=== PATIENT | male | born 1960 | race Caucasian/White ===

== ENCOUNTER 2016-12-18 07:47 | Day surgery (SDC) | payer OTHER ==
--- NOTE | 2016-12-05 14:18 | HP ---
ADMISSION HISTORY AND PHYSICAL: DATE OF ADMISSION/SURGERY: 12/18/16 ATTENDING PROVIDER: Wade Ayon MD (DICTATED BY SHANE PHILLIPS) CHIEF COMPLAINT: Bilateral inguinal hernia. HISTORY OF PRESENT ILLNESS: Mr. Vieyra is a pleasant 56-year-old gentleman who was initially seen in our office back in September of 2016 for evaluation of bilateral inguinal hernia. Patient was noted to have some bulge in the right groin area that has been going on for the past 9 months or so. He described it as a bothersome bulge that appears on occasion especially with frequent coughing or heavy weight lifting. He will often able to push in the area to reduce it and that will give him some relief. He notes that this bulge is usually aggravated with lifting heavy items. He denies any problems with bowel movements or similar symptoms on the left side. He otherwise is a very healthy 56-year-old gentleman with no significant past medical history except for intermittent PVCs for which he has been followed by his milk pickup truck driver, Dr. Rutherford. Patient was seen in the office today for preoperative evaluation regarding his anticipated elective hernia repair to be performed by Dr. Ayon on 12/18/16. He notes no changes in his symptoms since his last office visit. He still noticed occasional right groin bulge, but denies any changes in the bowel habits or any other associated symptoms. The patient was seen by Dr. Rutherford last week and had an exercise stress test that revealed an intermittent PVCs, but patient remained asymptomatic and it was found to be a low risk to proceed with surgery with no other recommendation for followup needed. The patient notes doing very well overall. PAST MEDICAL HISTORY: Significant for nephrolithiasis, and also history of congenital right inguinal hernia at . PAST SURGICAL HISTORY: Significant for a right inguinal hernia repair at age 3. He also had a vasectomy back in 2007. CURRENT MEDICATIONS: Patient does not take any regular medications at home. ALLERGIES: No known drug allergies. FAMILY HISTORY: Significant for hypertension and coronary artery disease on his father side. SOCIAL HISTORY: Patient is , lives with his family. He has never smoked and consumes alcohol on a weekly basis. He drinks 3 cups of coffee every day. He denies illicit drug use. REVIEW OF SYSTEMS: See HPI, otherwise negative. He denies any headache, dizziness, blurred vision, syncope. He denies any chest pain, shortness of breath, cough, wheezing or recent respiratory infections. He admits to right inguinal bulge, but denies any significant abdominal pain, distention, changes in bowel habits or bleeding per rectum. Patient also notes that he had some loose bowel movements a few weeks ago, but that seemed to be better now since he was held any dairy products assuming that he might have developed some lactase intolerance. He denies any flank pain, dysuria, hematuria or urinary frequency and no testicular pain or penile discharge. PHYSICAL EXAMINATION GENERAL: He is a pleasant, healthy appearing, 56-year-old gentleman in no acute distress or discomfort today in the office. VITAL SIGNS: His vitals today revealed blood pressure of 100/68, pulse of 62, temperature of 97.5, respirations of 16. He weighs 178 pounds on a 6 feet frame with a BMI of 24.3. HEENT: Sclerae anicteric. PERRLA. EOMs intact. Oropharynx is pink and moist with no exudate. NECK: Supple. Trachea midline. No cervical adenopathy, thyromegaly, or JVD. LUNGS: Clear to auscultation bilaterally. HEART: Regular rate and rhythm. Normal S1 and S2 without rubs, murmurs, or gallops. BACK: With normal curvature. No CVA tenderness. ABDOMEN: Soft, nontender, and nondistended. Examination of the right inguinal area revealed moderate sized right inguinal bulge noted in the standing position. This was easily reduced. There were no testicular lesions or masses noted. Left inguinal area was examined as well and a small hernia was noted on the Valsalva maneuver. In the supine position, there was no umbilical hernia appreciated. No organomegaly, rebound tenderness or tympany. EXTREMITIES: Without cyanosis, clubbing, or edema. RECTAL: Deferred at this time. NEUROLOGIC: Grossly intact. IMPRESSION: A 56-year-old gentleman with bilateral inguinal hernia easily reducible with no signs of strangulation or obstruction, with recurrent hernia on the right side. PLAN: I went on and discussed with the patient one more time the findings of his physical exam. He is well informed and scheduled to undergo surgery as outlined. The rationale, indications, risks, and benefits of surgery were discussed with him in great detail today. Risks include, but not limited to infection, bleeding, or injury to adjacent structures. He seems to understood and wishes to proceed with laparoscopic bilateral inguinal hernia repair. He has obtained both medical and cardiology clearance from his primary care physician and milk pickup truck driver in respect. He was found to be a low risk to proceed with surgery and no further testing was recommended. We discussed also the anticipated recovery time and the need to withhold any heavy weight lifting for a period of 2 weeks at least. We will follow him up accordingly after the surgery. SHANE PHILLIPS CC: Wade Rutherford DO; Dr. Soria * [id number]/[facility] #: [id number] [place]
[~2016-12-18 07:47] MED LIST: Famotidine IV* 10 MG/ML 2 ML (20 mg) IV ONE
[2016-12-18] MEDS ORDERED: Famotidine IV* 10 MG/ML 2 ML (20 mg) ONE (08:04)
[2016-12-18] MEDS ORDERED: ceFAZolin 2 GM PREMIX(*) 2 GM/50 ML BAG IVPB ONE (08:04)
[2016-12-18] MEDS ORDERED: Midazolam* 1 MG/ML 5 ML VIAL (5 MG) ONE (09:07)
[2016-12-18] MEDS ORDERED: fentaNYL* 50 MCG/ML 2 ML VIAL (100 MCG VIAL) ONE ×2 (09:07→10:48)
[2016-12-18] MEDS ORDERED: Bupivacaine 0.25% EPI 200,000* 30 ML SDV ONE (09:47)
--- NOTE | 2016-12-18 10:32 | PN ---
Progress Note - Progress Note Note: Brief Operative Note: Preop and postop Dx: Bilateral Inguinal Hernias Procedure: Laparoscopic repair bilateral inguinal hernias w/ mesh Anesthesia: SAI Surgeon: Gabo Asst: SHANE Acharya EBL: < 50 ml Fluids: 1600 ml RL Drains: none Findings: dictated
[2016-12-18] MEDS ORDERED: Rocuronium* 10 MG/ML VIAL ONE ×2 (10:40→11:30)
[2016-12-18] MEDS ORDERED: Succinylcholine* 20 MG/ML 10 ML VIAL ONE (10:46)
[2016-12-18] MEDS ORDERED: Dexamethasone IV* 4 MG/ML 1 ML (4 MG) ONE (10:46)
[2016-12-18] MEDS ORDERED: Ondansetron INJ* 2 MG/ML VIAL ONE (10:46)
[2016-12-18] MEDS ORDERED: Ketorolac INJ* 30 MG/ML 1 ML VIAL ONE (10:46)
[2016-12-18] MEDS ORDERED: Lidocaine 2% PF * 5 ML VIAL ONE (10:46)
[2016-12-18] MEDS ORDERED: Propofol* 10 MG/ML 20 ML BTL IV PUSH ONE (10:46)
[2016-12-18] MEDS ORDERED: HYDROmorphone* 1 MG/ML 1 ML SYR IV PRN (11:05)
[2016-12-18] MEDS ORDERED: DiMENhydriNATE IV* 50 MG/ML VIAL IV PUSH PRN (11:05)
[2016-12-18] MEDS ORDERED: oxyCODONE/Acetamin 5/325 MG* TAB PO PRN (11:05)
[2016-12-18] MEDS ORDERED: HYDROmorphone* 1 MG/ML 1 ML SYR ONE (11:18)
[2016-12-18] MEDS ORDERED: oxyCODONE/Acetamin 5/325 MG* TAB ONE (12:45)
[2016-12-18 14:04] VITALS: BP 106/75
--- NOTE | 2016-12-25 01:21 | OP ---
CC: Brina Soria DO; Wade Rutherford DO; [facility] OPERATIVE REPORT: DATE OF OPERATION: 12/18/16 DATE OF : 64 SURGEON: Wade Ayon MD FRONT MAN: SHANE Peter ANESTHESIA: General anesthesia. PRE-OP DIAGNOSIS: Bilateral inguinal hernia. POST-OP DIAGNOSIS: Bilateral inguinal hernia. OPERATIVE PROCEDURE: Laparoscopic bilateral inguinal hernia repair with mesh. ESTIMATED BLOOD LOSS: Minimal. FLUIDS: Minimal crystalloid fluid given. SPECIMEN: None. DRAINS: None. COUNTS: Lap pad count and instrument count correct at the end of the procedure. DESCRIPTION OF PROCEDURE: The patient was identified in the preoperative area. He was marked, case discussed with him, and consent signed. He was brought back to the operating room, placed on the o perating room in a supine position. Preoperative antibiotics were given. Sequential devices were pl aced on bilateral lower extremities. General anesthesia was induced. A Oliver catheter was inserted and the patient's abdomen was clipped of hair and prepped and draped in a standard surgical fashion . A time-out was performed. An infraumbilical incision was made. This was deepened down to the anterior fascia on the left, whi ch was incised and the rectus pillar on the left was retracted laterally. This allowed us entry int o the preperitoneal plane. Blunt dissection was then carried out and a 12-mm trocar was inserted in to this space and allowed to insufflate to a pressure of 12 mmHg. The patient tolerated the insuffl ation well. Laparoscope was inserted and blunt dissection was then carried out with the camera to fr ee up loose areolar tissue to allow for 2 additional 5-mm trocars to be inserted in the lower midlin e. Attention was then towards the right side. The pubic symphysis and the Ehsan's ligament on the rig ht were cleared off. A direct hernia was reduced gently. Attention was then turned to the epigastri c vessels, these were maintained superiorly, and the space of [place] was cleared off to allow positi oning for the mesh at the lateral aspect of the right groin. Next, the spermatic structures were isolated. They were skeletonized and no indirect hernia sac was identified. Attention was then towards the left. Left Ehsan's ligament was cleared off. Epigastric vessels wer e identified and noted to be aligned posteriorly. This forced us to perform dissection just deep to these and reflect them anteriorly. This allowed us to open up into a [place] space; however, we did put an opening in the peritoneum laterally. This was reapproximated with a 5 mm clip sound system installer, but p neumoperitoneum remained. We then examined the spermatic structures. An indirect hernia sac was identified heading along the cord structures. This was bluntly reduced and a large rent in the peritoneum was made. We ultimate ly did reduce this completely posteriorly. It was closed. This rent was reapproximated with a 5 mm clip sound system installer as well as a 2- 0 Polysorb Endoloop. We then placed the meshes over the myopectineal orifices bilaterally using a Bard 3D mesh medium siz e, first 2 places on the right side, tacked it to Ehsan's ligament and also along the rectus muscle and also laterally taking care not to place it in the [place] of [place]. We applied the left-sided mesh in a similar fashion. Then, we allowed the preperitoneal space to collapse. Trocars were removed under direct vision and attention was turned towards the posterior fascia at the umbilical port site. This was incised. Gu sh of air from peritoneum was encountered and the trocar was inserted through this. Laparoscope was inserted to this port and the patient was placed in a Trendelenburg fashion. Review of the periton eum showed that we did not completely close the rent and the lower midline incisions were then utili zed to place 5-mm ports into the abdomen. With this better access, we could close the peritoneum ov erlying the mesh such that no mesh was exposed. The mesh did not show any wrinkling. The abdomen was allowed to collapse. Trocars were removed under direct vision. Posterior fascia was closed with 2-0 Polysorb suture in an anterior fashion with 0 Polysorb suture in a [id number] fashion. Wound was irrigated and all 3 skin incisions were reapproximated with 4-0 Monocryl subcuti cular sutures followed by Steri-Strips and sterile dressing. The patient tolerated the procedure we ll and was transferred to PACU in stable condition. [id number]/[facility] #: [id number]
== END 2016-12-18 14:04 | disposition home or self-care (01) ==
LOC: OR 07:47
PROVIDERS: ATTEND Surgery
DX: K40.20 Bilateral inguinal hernia, without obstruction or gangrene, not specified as recurrent (principal); I49.3 Ventricular premature depolarization
CPT/HCPCS: A9270-GY; C1776; C1781; J0330; J0690; J1100; J1170; J1885; J2250; J2405; J2704; J3010

== ENCOUNTER 2016-12-30 13:29 | Observation (INO) | payer OTHER ==
[2016-12-30 17:24] LABS: Hematocrit 45 % (42-52); Mean Corpuscular HGB Conc 33 g/dl (31-36); Mean Corpuscular Hemoglobin 31 pg (27-31); Mean Corpuscular Volume 92 fL (80-94); Mean Platelet Volume 9 um3 (7.4-10.4); Red Blood Count 4.93 10^6/ul (4.0-5.4); Red Cell Distribution Width 13 % (10.5-15); White Blood Count 9.1 10^3/ul (3.5-10.8)
--- NOTE | 2016-12-30 17:24 | RAD ---
INDICATION: Chest pain with radiation to the back. COMPARISON: There are no prior studies available for comparison. TECHNIQUE: Dual-energy PA and lateral views of the chest were obtained. FINDINGS: The heart is within normal limits in size. Mediastinal and hilar contours appear within normal limits. The lungs are underinflated. There are small infiltrates at both lung bases suggestive of atelectasis although nonspecific. No pleural effusion is seen. IMPRESSION: EXPIRATORY EXAM, SMALL BIBASILAR INFILTRATES.
[2016-12-30 18:04] LABS: Albumin 4.2 g/dL (3.2-5.2); BUN/Creatinine Ratio 15.5 (8-20); Calcium 9.1 mg/dL (8.6-10.3); EGFR African American 122.5 (>60); EGFR Non-African American 95.2 (>60); Globulin 2.7 g/dL (2-4); Total Protein 6.9 g/dL (6.4-8.9)
[2016-12-30 18:06] LABS: Potassium 4.2 mmol/L (3.5-5.0)
[2016-12-30] MEDS ORDERED: Iohexol 350* (CONTRAST) 500 ML MDV IV ONE (18:23)
--- NOTE | 2016-12-30 18:55 | RAD ---
INDICATION: Chest pain and shortness of breath. COMPARISON: Comparison is made with a prior chest x-ray study of the same day. TECHNIQUE: A CT angiogram of the chest was performed with intravenous following intravenous injection of 65 ml of Omnipaque 350 nonionic contrast. Contiguous axial sections were obtained from the lung apices through the lung bases. Images were reconstructed in the coronal and sagittal planes. FINDINGS: There are intraluminal filling defects present in several bilateral lower lobe basilar segmental arteries consistent with multiple bilateral pulmonary emboli. The heart is within normal limits in size. No pericardial effusion is present. The thoracic aorta is normal in caliber and demonstrates homogeneous contrast opacification. No significant enlarged mediastinal or hilar lymph nodes are seen. The lungs are underinflated. There are small bilateral lower lobe infiltrates. No pleural effusion is present. There is a small fluid density lesion in the posterior segment of the right hepatic lobe seen on the images of the upper abdomen measuring 1.4 cm in size most consistent with a cyst. No significant focal osseous abnormality is seen. The results of this exam were called to the referring clinician. IMPRESSION: MULTIPLE BILATERAL PULMONARY EMBOLI.
[2016-12-30] MEDS ORDERED: Rivaroxaban TAB(*) 15 MG PO ONE (19:05)
[2016-12-30] MEDS ORDERED: Ondansetron INJ* 2 MG/ML VIAL IV PRN (20:47)
[2016-12-30] MEDS ORDERED: oxyCODONE/Acetamin 5/325 MG* TAB PO PRN (20:47)
--- NOTE | 2016-12-30 22:23 | RAD ---
INDICATION: Pulmonary embolism. COMPARISON: Correlation is made with a prior CT angiogram of the chest of the same day. TECHNIQUE: Multiple real-time, color flow and Doppler tracings of both lower extremities were obtained. FINDINGS: The common femoral, femoral, profunda femoral and popliteal veins all demonstrate normal compressibility, augmentation with compression and phasic response with respiration. The posterior tibial and peroneal veins demonstrate normal compressibility and augmentation with compression. IMPRESSION: NO EVIDENCE FOR DEEP VENOUS THROMBOSIS.
[2016-12-30] MEDS: Acetaminophen TAB* 325 MG PO PRN (22:28)
--- NOTE | 2016-12-30 23:18 | HP ---
HISTORY AND PHYSICAL: DATE OF ADMISSION: 12/30/16 PRIMARY CARE PHYSICIAN: Tyshawn Soria DO ATTENDING PHYSICIAN WHILE IN THE HOSPITAL: Randy Kaiser MD * (report dictated by Keanu Chavarria NP). CHIEF COMPLAINT: Right-sided back pain, worse with taking a deep breath. HISTORY OF PRESENT ILLNESS: Mr. Vieyra is a 56-year-old male patient who is relatively healthy, has a history of nephrolithiasis in the past and inguinal hernias. He actually underwent a procedure about 2 weeks ago for a bilateral inguinal hernia repair. He underwent the procedure without any complications. Unfortunately though over the last couple of days, he has been some difficulty with having pain in his back, worse with taking a deep breath. No shortness of breath or chest pain. He said the pain got progressively worse to the point at 4 o'clock in the morning, it woke him up from sleep. When he took a deep breath , he could not breath at all, it hurt so much, he was concerned and he came into the ER. Actually, called his primary's office and his primary deferred him to the ER for evaluation. He denied any fevers. Denies any nausea, vomiting. Says he has been having bowel movements well, has not had any diarrhea. He has not had any abdominal discomfort. He came into the ER, was evaluated, found to have bilateral PEs. Because of this, the hospitalist service was asked to evaluate for admission. PAST MEDICAL HISTORY: Significant for nephrolithiasis. PAST SURGICAL HISTORY: He has had bilateral hernia inguinal repair. He has also had a hernia repair as a child. He has had a vasectomy. HOME MEDICATIONS: Denied. ALLERGIES TO MEDICATIONS: Include no known drug allergies. FAMILY HISTORY: His mother had hypertension. Father had a history of amyloidosis. SOCIAL HISTORY: He does not smoke. He does not drink. He works at [employer]. Surrogate decision maker is his . REVIEW OF SYSTEMS: There is no documented fever. He denied having any significant weight changes. There was no double vision. No ear discharge. He denied having any rhinorrhea. No sore throat. No thyroid enlargement. He denies any chest pain. Denies having any abdominal pain. There is no nausea, no vomiting. There is no dysuria, no frequency. There is no seizure. No loss of consciousness. No pruritus. No skin ulceration. Review of 14 systems completed, all others negative. PHYSICAL EXAMINATION GENERAL: At this time, Mr. Vieyra is a 56-year-old male patient, who appears to be well nourished, well developed. He does not appear to be in any acute distress. VITAL SIGNS: Blood pressure 116/80 with a pulse 68, respirations of 18, O2 saturation of 100%, temperature 99.1. HEENT: Head is atraumatic, normocephalic. Eyes: EOMs intact. Sclerae are anicteric and not pale. Throat: Oral mucosa appears to be moist. No oropharyngeal erythema. NECK: Supple. LUNGS: Clear to auscultation bilaterally. No wheezes, rales or rhonchi. HEART: Sounds S1, S2. Regular rate and rhythm. No murmurs, rubs or gallops. ABDOMEN: Soft, flat. There was tenderness at the incision lines from the surgery, but they appear to be healing and well approximated. No erythema. EXTREMITIES: Pulses 2+ throughout. He is able to move all 4 extremities with 5 /5 strength. NEUROLOGIC: He is awake. He is alert. He is oriented x3. His tongue is midline. 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 No gross focal deficits. SKIN: Intact. LABORATORY DATA AND DIAGNOSTIC STUDIES: Today revealed WBC of 9.1, RBC of 4.93 , hemoglobin 15.3, hematocrit of 45, and platelet count 251, INR 0.99. PTT of 26.1. Sodium 136, potassium 4.2, chloride 103, bicarbonate 22, BUN 13, creatinine 0.84. Glucose of 85. Lactic 1.9, calcium 9.1, total bilirubin 1.0, AST 41, ALT 75, troponin 0, albumin of 4.2. He did have a chest CTA done today, which showed multiple bilateral pulmonary emboli. He had an EKG obtained today as well. Unfortunately, I do not have a previous one for comparison, but today's EKG revealed a normal sinus rhythm with a PVC, no ST elevations or T wave inversions, rate of 60. He did have a chest x-ray obtained today, which revealed extra exam, small basilar infiltrate. Old medical records reviewed. ASSESSMENT AND PLAN: Mr. Vieyra is a 56-year-old male patient coming in to the ER today with complaints of pain in his right lower back, worsening with taking a deep breath, on evaluation found to have bilateral pulmonary emboli. He will be admitted under inpatient status for: 1. Bilateral pulmonary emboli. At this point, hemodynamically he appears to be stable. He is tolerating this well. I think we will get an echo in the morning just to be sure, place him on telemetry, start him on Xarelto. We will get ultrasound of the lower extremities per the request of the on-call surgeon at this point to assess for clot burden, although the treatment would be the same. At this point, my opinion, we will go ahead and again place him on telemetry. We will continue to follow. 2. History of nephrolithiasis, not an active issue. 3. History of recent inguinal hernia repair. Did touch base with Surgery senior litigation paralegal, they were okay with the anticoagulation starting as it is needed. 4. DVT prophylaxis. He will be on Xarelto therapeutic dose. 5. Code status, full code. 6. Fluids, electrolytes, and nutrition: He can have a regular diet. TIME SPENT: Time spent on the admission was approximately 60 minutes, greater than half the time was spent [id number] with the patient obtaining my history and physical, other half time spent going over the plan of care with the patient and implementing plan of care. I did discuss the plan of care with my attending, Dr. Kaiser, he is in agreement. KEANU CHAVARRIA NP CC: Tyshawn Soria DO; Wade Ayon MD * [id number]/[facility] #: [id number] [place]
[2016-12-31 04:50] VITALS: BP 116/57
[2016-12-31 05:21] LABS: Hematocrit 38 % (42-52); Mean Corpuscular HGB Conc 35 g/dl (31-36); Mean Corpuscular Hemoglobin 31 pg (27-31); Mean Corpuscular Volume 90 fL (80-94); Mean Platelet Volume 8 um3 (7.4-10.4); Red Cell Distribution Width 13 % (10.5-15); White Blood Count 7.2 10^3/ul (3.5-10.8)
[2016-12-31 05:37] LABS: BUN/Creatinine Ratio 19.8 (8-20); Calcium 8.8 mg/dL (8.6-10.3); EGFR African American 119.2 (>60); EGFR Non-African American 92.7 (>60); Potassium 3.9 mmol/L (3.5-5.0)
[2016-12-31] MEDS ORDERED: Rivaroxaban TAB(*) 15 MG PO SCH (08:00)
[2016-12-31] MEDS: Acetaminophen TAB* 325 MG PO PRN (08:12)
--- NOTE | 2016-12-31 08:13 | ED ---
Suman Heaton SooYoung, scribed for Alejo Deras MD on 12/30/16 at 1648 . Back Pain - HPI Summary HPI Summary: A 56 y/o M presents to ED with c/o intermittent R flank pain onset 3 days ago, worsening last night at 0400. Pert PSHx: bilat inguinal hernia surgery with Dr. Ayon approx 10 days ago. Describes the pain as sharp. Associated sx: SOB. Pt has skipped heartbeat per baseline. Aggravating factors: laughing, deep breaths. Referred by his PCP, Dr. Winchester, to come to ED today to r/u DVT. - History of Current Complaint Chief Complaint: EDFlankPain Stated Complaint: FLANK PAIN Time Seen by Provider: 12/30/16 16:44 Hx Obtained From: Patient, Family/Chief Estimator - Onset/Duration: Lasting Hours - WORSE OF 0400, Lasting Days - ONSET 3 DAYS AGO, Still Present Timing: Intermittent Back Pain Location: Is Discrete @ - L FLANK Severity Currently: Severe Pain Intensity: 9 Pain Scale Used: 0-10 Numeric Character: Sharp Associated Signs And Symptoms: Positive: Other - POS: SOB - Allergies/Home Medications Allergies/Adverse Reactions: Allergies Allergy/AdvReac Type Severity Reaction Status Date / Time No Known Allergies Allergy Verified 12/30/16 14:22 PMH/Surg Hx/FS Hx/Imm Hx Previously Healthy: Yes Respiratory History: Denies: Hx Chronic Obstructive Pulmonary Disease (COPD) GI History: Reports: Hx Hiatal Hernia - repaired as an infant History: Reports: Hx Kidney Stones - over 5 years ago, none since Sensory History: Denies: Hx Legally Blind - Surgical History Surgery Procedure, Year, and Place: hiatal hernia as an Hx Anesthesia Reactions: No Infectious Disease History: Denies: Traveled Outside the [place] in Last 30 Days - Family History Known Family History: Positive: None - DENIES FHX Negative: Blood Disorder - Social History Occupation: Employed Full-time Lives: With Family Alcohol Use: Weekly Alcohol Amount: 5 per week Hx Substance Use: No Substance Use Type: Reports: None Hx Tobacco Use: No Smoking Status (MU): Never Smoked Tobacco Review of Systems Negative: Fever Positive: Shortness Of Breath Positive: flank pain - R All Other Systems Reviewed And Are Negative: Yes Physical Exam - Summary Physical Exam Summary: VITAL SIGNS: Reviewed. GENERAL: Patient is a well-developed and nourished male who is lying comfortable in the stretcher. Patient is not in any acute respiratory distress. HEAD AND FACE: No signs of trauma. No ecchymosis, hematomas or skull depressions. No sinus tenderness. EYES: PERRLA, EOMI x 2, No injected conjunctiva, no nystagmus. EARS: Hearing grossly intact. Ear canals and tympanic membranes are within normal limits. MOUTH: Oropharynx within normal limits. NECK: Supple, trachea is midline, no adenopathy, no JVD, no carotid bruit, no c- spine tenderness, neck with full ROM. CHEST: Symmetric, no tenderness at palpation LUNGS: Clear to auscultation bilaterally. No wheezing or crackles. CVS: Regular rate and rhythm, S1 and S2 present, no murmurs or gallops appreciated. ABDOMEN: Soft, non-tender. No signs of distention. No rebound, no guarding, and no masses palpated. Bowel sounds are normal. EXTREMITIES: FROM in all major joints, no edema, no cyanosis or clubbing. NO REPRODUCIBLE PAIN WITH PALPATION. NEURO: Alert and oriented x 3. No acute neurological deficits. Speech is normal and follows commands. SKIN: Dry and warm Triage Information Reviewed: Yes Vital Signs On Initial Exam: Initial Vitals Temp Pulse BP Pulse Ox 98.4 F 61 125/77 100 12/30/16 14:23 12/30/16 14:23 12/30/16 14:23 12/30/16 14:23 Vital Signs Reviewed: Yes Diagnostics - Vital Signs Vital Signs Temp Pulse Resp BP Pulse Ox 12/30/16 16:14 77 18 120/54 99 12/30/16 14:23 98.4 F 61 125/77 100 - Laboratory Lab Results: Lab Results 12/30/16 12/30/16 12/30/16 Range/Units 17:18 17:18 17:26 WBC 9.1 (3.5-10.8) 10^3/ul RBC 4.93 (4.0-5.4) 10^6/ul Hgb 15.0 (14.0-18.0) g/dl Hct 45 (42-52) % MCV 92 (80-94) fL MCH 31 (27-31) pg MCHC 33 (31-36) g/dl RDW 13 (10.5-15) % Plt Count 251 (150-450) 10^3/ul MPV 9 (7.4-10.4) um3 Neut % (Auto) 76.6 (38-83) % Lymph % (Auto) 15.7 L (25-47) % [place] % (Auto) 6.6 (1-9) % Eos % (Auto) 0.3 (0-6) % Baso % (Auto) 0.8 (0-2) % Absolute Neuts (auto) 7.0 (1.5-7.7) 10^3/ul Absolute Lymphs (auto) 1.4 (1.0-4.8) 10^3/ul Absolute Monos (auto) 0.6 (0-0.8) 10^3/ul Absolute Eos (auto) 0 (0-0.6) 10^3/ul Absolute Basos (auto) 0.1 (0-0.2) 10^3/ul Absolute Nucleated RBC 0 10^3/ul Nucleated RBC % 0 INR (Anticoag Therapy) 0.99 (0.89-1.11) APTT 26.1 (26.0-36.3) seconds D-Dimer, Quantitative 583 H (Less Than 230) ng/mL Sodium 136 (133-145) mmol/L Potassium 4.2 (3.5-5.0) mmol/L Chloride 103 (101-111) mmol/L Carbon Dioxide 22 (22-32) mmol/L Anion Gap 11 (2-11) mmol/L BUN 13 (6-24) mg/dL Creatinine 0.84 (0.67-1.17) mg/dL Est GFR ( Amer) 122.5 (>60) Est GFR (Non-Af Amer) 95.2 (>60) BUN/Creatinine Ratio 15.5 (8-20) Glucose 85 (70-100) mg/dL Lactic Acid (0.5-2.0) mmol/L Calcium 9.1 (8.6-10.3) mg/dL Total Bilirubin 1.00 (0.2-1.0) mg/dL AST 41 H (13-39) U/L ALT 75 H (7-52) U/L Alkaline Phosphatase 150 H (34-104) U/L Troponin I 0.00 (<0.04) ng/mL Total Protein 6.9 (6.4-8.9) g/dL Albumin 4.2 (3.2-5.2) g/dL Globulin 2.7 (2-4) g/dL Albumin/Globulin Ratio 1.6 (1-3) 12/30/16 Range/Units 17:26 WBC (3.5-10.8) 10^3/ul RBC (4.0-5.4) 10^6/ul Hgb (14.0-18.0) g/dl Hct (42-52) % MCV (80-94) fL MCH (27-31) pg MCHC (31-36) g/dl RDW (10.5-15) % Plt Count (150-450) 10^3/ul MPV (7.4-10.4) um3 Neut % (Auto) (38-83) % Lymph % (Auto) (25-47) % [place] % (Auto) (1-9) % Eos % (Auto) (0-6) % Baso % (Auto) (0-2) % Absolute Neuts (auto) (1.5-7.7) 10^3/ul Absolute Lymphs (auto) (1.0-4.8) 10^3/ul Absolute Monos (auto) (0-0.8) 10^3/ul Absolute Eos (auto) (0-0.6) 10^3/ul Absolute Basos (auto) (0-0.2) 10^3/ul Absolute Nucleated RBC 10^3/ul Nucleated RBC % INR (Anticoag Therapy) (0.89-1.11) APTT (26.0-36.3) seconds D-Dimer, Quantitative (Less Than 230) ng/mL Sodium (133-145) mmol/L Potassium (3.5-5.0) mmol/L Chloride (101-111) mmol/L Carbon Dioxide (22-32) mmol/L Anion Gap (2-11) mmol/L BUN (6-24) mg/dL Creatinine (0.67-1.17) mg/dL Est GFR ( Amer) (>60) Est GFR (Non-Af Amer) (>60) BUN/Creatinine Ratio (8-20) Glucose (70-100) mg/dL Lactic Acid 1.9 (0.5-2.0) mmol/L Calcium (8.6-10.3) mg/dL Total Bilirubin (0.2-1.0) mg/dL AST (13-39) U/L ALT (7-52) U/L Alkaline Phosphatase (34-104) U/L Troponin I (<0.04) ng/mL Total Protein (6.4-8.9) g/dL Albumin (3.2-5.2) g/dL Globulin (2-4) g/dL Albumin/Globulin Ratio (1-3) Result Diagrams: 12/31/16 05:03 12/31/16 05:03 Lab Statement: Any lab studies that have been ordered have been reviewed, and results considered in the medical decision making process. - Radiology CXR Xray Interpretation: Positive (See Comments) - IMPRESSION: EXPIRATORY EXAM, SMALL BIBASILAR INFILTRATES. Radiology Interpretation Completed By: Radiologist - CT chest/thorax CTA CT Interpretation: Positive (See Comments) - IMPRESSION: Multiple bilateral PE. CT Interpretation Completed By: Radiologist - EKG 1 Cardiac Rate: NL - 60bpm EKG Rhythm: Sinus Rhythm ST Segment: Normal - no ST elevation Ectopy: PVCs - possible PVCs EKG Interpretation: Read at 1759 Re-Evaluation - Re-Evaluation 1 Re-Evaluation Time: 18:52 Change: Unchanged Comment: Discussing CTA results with pt, PE is present. Back Pain Course/Dx - Course Assessment/Plan: A 56 y/o M presents to ED with c/o intermittent R flank pain onset 3 days ago, worsening last night at 0400. Pert PSHx: bilat inguinal hernia surgery with Dr. Ayon approx 10 days ago. Describes the pain as sharp. Associated sx: SOB. Pt has skipped heartbeat per baseline. Aggravating factors: laughing, deep breaths. Referred by his PCP, Dr. Winchester, to come to ED today to r /u DVT. Test results are WNL except increased DDimer. CXR shows "EXPIRATORY EXAM, SMALL BIBASILAR INFILTRATES." The Chest/Thorax CTA shows "Multiple bilateral pulmonary emboli". Pt has PE, and will be started on Xarelto. Discussed case with Dr. Santana, who accepted pt for admission. Patient is A+O x3 and he is hemodynamically stable - Diagnoses Provider Diagnoses: Pulmonary embolism - Provider Notifications Discussed Care Of Patient With: Sincere Santana - hospitalist Time Discussed With Above Provider: 18:53 Instructed by Provider To: Admit As Inpatient Discharge - Discharge Plan Condition: Stable Disposition: ADMITTED TO [facility] The documentation as recorded by the Suman faust SooYoung accurately reflects the service I personally performed and the decisions made by me, Alejo Deras MD.
--- NOTE | 2016-12-31 08:55 | ECHO ---
Patient: KIERSTEN CABAN [facility] Rec#: [id number] : 1960 Date: 12/31/2016 Age: 56y Weight: kg / NaN lbs Sex: M Room#: 452 Admit Date#: 12/30/2016 Type: Inpatient Referring: Keanu Chavarria NP Reading: Jimbo Johnson MD Pattern Filer: Maite Birmingham RDCS CC: Nikhilmallory Brina SOTO Transthoracic Echocardiogram Indication: Pulmonary Embolism BP: 116/57 HR: 60 Rhythm: NSR with PACs Findings History: Nephrolithiasis,current chest CTA= multiple bilat PE. Technical Comments: The study quality is good. Completed at 0823. Left Ventricle: The left ventricular chamber size is normal. Global left ventricular wall motion and contractility are within normal limits. There is normal left ventricular systolic function. The estimated ejection fraction is 55-60%. Normal left ventricular diastolic filling is observed. Left Atrium: The left atrium is normal in size. Right Ventricle: The right ventricular cavity size is normal. The right ventricular global systolic function is low normal. Right Atrium: The right atrial cavity size is normal. Aortic Valve: The aortic valve is trileaflet. There is no evidence of aortic valve thickening. There is no evidence of aortic regurgitation. There is no evidence of aortic stenosis. Mitral Valve: The mitral valve leaflets are mildly thickened. There is a trace of mitral regurgitation. There is no evidence of mitral stenosis. Tricuspid Valve: The tricuspid valve leaflets are mildly thickened. There is trace tricuspid regurgitation. Unable to estimate the right ventricular systolic pressure. There is no tricuspid stenosis. Pulmonic Valve: There is no evidence of pulmonic regurgitation. There is no pulmonic stenosis. Pericardium: The pericardium appears normal. Aorta: There is mild dilatation of the ascending aorta. There is no dilatation of the aortic arch. There is mild dilatation of the aortic root. Pulmonary Artery: The main pulmonary artery appears normal. Venous: The inferior vena cava appears normal in size. There is a greater than 50% respiratory change in the inferior vena cava dimension. Conclusions There is normal left ventricular systolic function. The estimated ejection fraction is 55-60%. The right ventricular cavity size is normal. The right ventricular global systolic function is low normal. No significant valvular disease: There is trace tricuspid regurgitation. Unable to estimate the right ventricular systolic pressure. There is a trace of mitral regurgitation. There is mild dilatation of the ascending aorta. There is mild dilatation of the aortic root. No reports of prior studies offered for comparison. Measurements Name Value Normal Range RVIDd (AP) 2D 2.6 cm (0.9 - 2.6) RVDdMajor (2D) 3.6 cm (2.2 - 4.4) RAd ISD 4CH 5.6 cm (3.4 - 4.9) RA (A4C)W 3.1 cm (2.9 - 4.6) IVSd (2D) 1.1 cm (0.6 - 1) LVPWd (2D) 0.8 cm (0.6 - 1) LVIDd (2D) 3.9 cm (3.6 - 5.4) LVIDs (2D) 2.8 cm - LV FS (2D) 28 % (25 - 45) Aortic Annulus 2.3 cm (1.4 - 2.6) Ao root diameter (2D) 4.3 cm (2.1 - 3.5) Ascending Ao 3.9 cm (2.1 - 3.4) Aortic arch 2.3 cm (1.8 - 3.4) Descending Ao 0.8 cm - LA dimension (AP) 2D 3.6 cm (2.3 - 3.8) LAd ISD 4CH 5.3 cm (2.9 - 5.3) LA ISD 4CH W 4 cm (2.5 - 4.5) Name Value Normal Range LA ESV SP 4CH (A/L) 75 ml - LA ESV SP 2CH (A/L) 63 ml - LA ESV BP (A/L) 69 ml - LA ESV BP (A/L) index 34.97 ml/m2 - LA ESV SP 4CH (MOD) 63 ml - LA ESV SP 2CH (MOD) 58 ml - Name Value Normal Range MV E-wave Vmax 0.7 m/sec - MV deceleration time 249 msec - MV A-wave Vmax 0.57 m/sec - MV E:A ratio 1.25 ratio - LV septal e' Vmax 0.11 m/sec - LV lateral e' Vmax 0.14 m/sec - LV E:e' septal ratio 6.36 ratio - LV E:e' lateral ratio 5 ratio - Name Value Normal Range AV Vmax 1.2 m/sec - AV VTI 29.5 cm - AV peak gradient 6.06 mmHg - AV mean gradient 2.91 mmHg - LVOT Vmax 1.1 m/sec - LVOT VTI 23.6 cm - LVOT peak gradient 5.45 mmHg - LVOT mean gradient 2.1 mmHg - Name Value Normal Range TR Vmax 2.5 m/sec - TR peak gradient 24 mmHg - RAP 3 mmHg - RVSP 27 mmHg - IVC diameter 2 cm - Name Value Normal Range PV Vmax 0.8 m/sec - PV peak gradient 2.43 mmHg -
--- NOTE | 2016-12-31 12:02 | DS ---
CC: Dr. Brina Soria * DATE OF ADMISSION: 12/30/2016. DATE OF DISCHARGE: 12/31/2016. PRIMARY CARE PHYSICIAN: Dr. Brina Soria. DISCHARGING PROVIDER: SHANE Steven. SUPERVISING PHYSICIAN: Dr. Sincere Santana *(dictated by SHANE Steven). PRIMARY DISCHARGE DIAGNOSES: 1. Bilateral pulmonary emboli without hemodynamic instability. 2. Status post right inguinal hernia repair. DISCHARGE MEDICATIONS: 1. Xarelto 15 mg p.o. twice daily for a total of 21 days, to be followed by 20 mg once daily for a total of 6 months. Medication changes: 1. Start Xarelto. HOSPITAL IMAGIN. Chest x-ray shows an expiratory film, possible small bibasilar infiltrates. 2. CTA of the chest shows multiple bilateral pulmonary emboli. 3. Lower extremity Doppler shows no evidence of DVT. 4. Transthoracic echocardiogram shows normal left ventricular ejection fraction at 55 to 60 percent without significant valvular disease and right ventricular function is on the low side of normal. HOSPITAL COURSE: This is a 56-year-old gentleman who is otherwise healthy and underwent an inguinal hernia repair about two weeks ago. He has been recovering well since surgery, but over the last couple of days he was having some pain in his back which seems to be worse with deep inspiration. No real complaints of dyspnea or chest pain. The patient, however, awoke him from sleep at approximately 4:00 a.m. at which point he called his primary care provider's office in the morning who deferred him to the emergency department for evaluation. Initial labs were unremarkable with the exception of an elevated D-dimer to 583. CTA of the chest was subsequently performed which demonstrated bilateral pulmonary emboli. The patient was not significantly hypoxic and was otherwise hemodynamically stable and was started on Xarelto and admitted to a period of observation. The patient was maintained on contiguous telemetry without significant dysrhythmias. Initial troponin was negative and the patient had some mild pleuritic discomfort, but improved since admission and no new symptoms. DISPOSITION AND FOLLOW-UP PLAN: The patient is being discharged to home. He requires a total of six months of anticoagulation at which point it can be discontinued. Could consider coagulopathy work-up at that time. Recommend follow- up with primary care within a week of discharge and he will require a new prescription for 20 mg of Xarelto daily after he completes his initial three weeks of 15 mg twice daily. SHANE STEVEN [id number]/[facility] #: [id number] MTDD
== END 2016-12-31 11:57 | disposition home or self-care (01) ==
LOC: ED 13:29 → MEDTELE 18:55
PROVIDERS: ADMIT Internal Medicine; ATTEND Internal Medicine
DX: I26.99 Other pulmonary embolism without acute cor pulmonale (principal); Z98.890 Other specified postprocedural states; R10.84 Generalized abdominal pain; R06.02 Shortness of breath; M54.9 Dorsalgia, unspecified
CPT/HCPCS: 36415; 71020; 71275; 80048; 80053; 83605; 84484; 85025; 85379; 85610; 85730; 93005; 93306; 93970; 94760; 96374; A9270-GY; G0378; Q9967

== ENCOUNTER 2020-02-10 17:15 | Inpatient (IN) ==
[2020-02-10 18:15] LABS: ABS Lymphocytes 1.1 10^3/ul (1.0-4.8); ABS Monocytes 0.5 10^3/ul (0-0.8); ABS Neutrophils 9.4 10^3/ul (1.5-7.7); Eosinophil % 0.1 %; Hematocrit 46 % (42-52); Hemoglobin 15.8 g/dL (14.0-18.0); Lymphocyte % 10.2 %; Mean Corpuscular HGB Conc 35 g/dL (31-36); Mean Corpuscular Hemoglobin 31 pg (27-31); Mean Corpuscular Volume 91 fL (80-94); Mean Platelet Volume 9.7 fL (7.4-10.4); Platelet Count 280 10^3/uL (150-450); Red Blood Count 5.03 10^6 /uL (4.18-5.48); Red Cell Distribution Width 13 % (10-15); White Blood Count 11.1 10^3/uL (3.5-10.8)
[2020-02-10 18:18] LABS: INR 1.06 (0.82-1.09)
[2020-02-10 18:31] LABS: ALT 18 U/L (7-52); Albumin 4.7 g/dL (3.2-5.2); Albumin/Globulin Ratio 1.6 (1-3); Alkaline Phosphatase 102 U/L (34-104); BUN/Creatinine Ratio 14.3 (8-20); Blood Urea Nitrogen 13 mg/dL (6-24); CO2 Carbon Dioxide 23 mmol/L (22-32); Calcium 9.5 mg/dL (8.6-10.3); Chloride 104 mmol/L (101-111); EGFR African American 103.5 (>60); EGFR Non-African American 85.6 (>60); Globulin 2.9 g/dL (2-4); Glucose 126 mg/dL (70-100); Sodium 137 mmol/L (135-145); Total Protein 7.6 g/dL (6.4-8.9)
[2020-02-10 20:04] LABS: Anion Gap 10 mmol/L (2-11)
[2020-02-10 20:23] LABS: Lipase 33 U/L (11.0-82.0)
[2020-02-10] MEDS ORDERED: Al Hydrox/Mg Hydrox/Simet LIQ 30 ML UDC PO ONE (20:28)
[2020-02-10 20:45] LABS: Potassium Redraw 3.5 mmol/L (3.5-5.0)
[2020-02-10] MEDS ORDERED: Iohexol 350 (CONTRAST) 500 ML MDV IV ONE (21:46)
[2020-02-10] MEDS: Morphine 2 MG/ML SYRINGE IV PRN (22:43)
[2020-02-10] MEDS ORDERED: Piperacillin/Tazobac ADVAN 3.375 GM in NS 0.9% 100 ml BAG 100 ML IVPB ONE (22:50)
[2020-02-10 23:21] LABS: INR 1.13 (0.82-1.09)
[2020-02-10] MEDS: Heparin 5000 UNITS/ML 1 mL VIAL SUBCUT SCH (23:41)
[2020-02-10] MEDS: NS 0.9% 1000 ml BAG 1,000 ML IV SCH (23:41)
[2020-02-11] MEDS ORDERED: Zosyn per Pharmacy NOTE FOLLOW UP PRN (00:34)
[2020-02-11] MEDS: Morphine 2 MG/ML SYRINGE IV PRN ×2 (03:33→07:44)
[2020-02-11] MEDS: ZOSYN 3.375 GM Q8H per EXTENDED INFUSION IV SCH ×3 (03:34→19:57)
[2020-02-11 04:25] LABS: ABS Lymphocytes 0.9 10^3/ul (1.0-4.8); ABS Monocytes 1.1 10^3/ul (0-0.8); ABS Neutrophils 10.5 10^3/ul (1.5-7.7); Eosinophil % 0.1 %; Hematocrit 38 % (42-52); Hemoglobin 13.2 g/dL (14.0-18.0); Lymphocyte % 7.5 %; Mean Corpuscular HGB Conc 35 g/dL (31-36); Mean Corpuscular Hemoglobin 31 pg (27-31); Mean Corpuscular Volume 90 fL (80-94); Mean Platelet Volume 9.1 fL (7.4-10.4); Platelet Count 226 10^3/uL (150-450); Red Blood Count 4.24 10^6 /uL (4.18-5.48); Red Cell Distribution Width 13 % (10-15); White Blood Count 12.6 10^3/uL (3.5-10.8)
[2020-02-11 04:28] LABS: INR 1.17 (0.82-1.09)
[2020-02-11 04:40] LABS: Albumin 3.6 g/dL (3.2-5.2); Albumin/Globulin Ratio 1.6 (1-3); BUN/Creatinine Ratio 14.3 (8-20); EGFR African American 103.5 (>60); EGFR Non-African American 85.6 (>60); Globulin 2.3 g/dL (2-4); Potassium 3.9 mmol/L (3.5-5.0); Total Bilirubin 1.3 mg/dL (0.2-1.0); Total Protein 5.9 g/dL (6.4-8.9)
[2020-02-11] MEDS ORDERED: NS 0.9% 1000 ml BAG 1,000 ML IV ONE ×2 (05:05→12:31)
[2020-02-11] MEDS: Heparin 5000 UNITS/ML 1 mL VIAL SUBCUT SCH ×3 (05:15→22:01)
[2020-02-11] MEDS: NS 0.9% 1000 ml BAG 1,000 ML IV SCH ×3 (06:31→22:01)
[2020-02-11] MEDS: Aspirin EC 81 mg TAB.EC (enteric coated) PO SCH (07:45)
[2020-02-11] MEDS ORDERED: Morphine 4 MG/ML VIAL (1 ml) IV ONE (10:48)
[2020-02-11] MEDS: Ondansetron 4 mg VIAL 2 MG/ML 2 ml VIAL IV PRN (11:25)
[2020-02-11 11:29] LABS: Magnesium 1.7 mg/dL (1.9-2.7)
[2020-02-11] MEDS ORDERED: Magnesium Sulfate IV 1GM/100ML 1 GM/100 ML BAG IV ONE (12:48)
[2020-02-12] MEDS: ZOSYN 3.375 GM Q8H per EXTENDED INFUSION IV SCH ×3 (03:52→19:28)
[2020-02-12] MEDS: NS 0.9% 1000 ml BAG 1,000 ML IV SCH ×2 (03:52→23:35)
[2020-02-12] MEDS: Heparin 5000 UNITS/ML 1 mL VIAL SUBCUT SCH ×4 (05:29→23:34)
[2020-02-12] MEDS: Aspirin EC 81 mg TAB.EC (enteric coated) PO SCH (08:43)
[2020-02-12 09:03] LABS: Albumin 3.3 g/dL (3.2-5.2); Albumin/Globulin Ratio 1.4 (1-3); BUN/Creatinine Ratio 12.6 (8-20); Calcium 8.3 mg/dL (8.6-10.3); EGFR African American 98.5 (>60); EGFR Non-African American 81.4 (>60); Globulin 2.4 g/dL (2-4); Potassium 3.9 mmol/L (3.5-5.0); Total Protein 5.7 g/dL (6.4-8.9)
[2020-02-13] MEDS: Heparin 5000 UNITS/ML 1 mL VIAL SUBCUT SCH ×3 (04:40→23:10)
[2020-02-13] MEDS: ZOSYN 3.375 GM Q8H per EXTENDED INFUSION IV SCH ×4 (04:41→23:27)
[2020-02-13] MEDS ORDERED: Lactated Ringers 1000 ml BAG 1,000 ML IV SCH (06:00)
[2020-02-13] MEDS ORDERED: Famotidine IV 10 MG/ML 2 ml VIAL (20 mg) IV ONE (06:00)
[2020-02-13] MEDS ORDERED: Naloxone 0.4 mg VIAL 0.4 mg/ml 1 ml VIAL IV PRN (06:00)
[2020-02-13] MEDS ORDERED: HYDROmorphone 1 MG/1 ML SYRINGE IV PRN (06:00)
[2020-02-13 06:33] LABS: ABS Lymphocytes 0.5 10^3/ul (1.0-4.8); ABS Monocytes 0.8 10^3/ul (0-0.8); ABS Neutrophils 12.1 10^3/ul (1.5-7.7); Eosinophil % 0.1 %; Hematocrit 35 % (42-52); Hemoglobin 12.4 g/dL (14.0-18.0); Lymphocyte % 4.1 %; Mean Corpuscular HGB Conc 36 g/dL (31-36); Mean Corpuscular Hemoglobin 32 pg (27-31); Mean Corpuscular Volume 91 fL (80-94); Mean Platelet Volume 9.2 fL (7.4-10.4); Platelet Count 147 10^3/uL (150-450); Red Blood Count 3.83 10^6 /uL (4.18-5.48); Red Cell Distribution Width 13 % (10-15); White Blood Count 13.5 10^3/uL (3.5-10.8)
[2020-02-13 06:53] LABS: Albumin 2.8 g/dL (3.2-5.2); Albumin/Globulin Ratio 1.2 (1-3); Globulin 2.3 g/dL (2-4); Indirect Bilirubin 1.3 mg/dL (0.3-1.0); Total Bilirubin 3.5 mg/dL (0.2-1.0); Total Protein 5.1 g/dL (6.4-8.9)
[2020-02-13] MEDS ORDERED: Famotidine IV 10 MG/ML 2 ml VIAL (20 mg) ONE (07:56)
[2020-02-13] MEDS ORDERED: Bupivacaine 0.25% SDV 30 ML ONE (08:41)
[2020-02-13] MEDS ORDERED: fentaNYL 100 mcg/2 ml 50 MCG/ML VIAL ONE ×2 (09:00→09:44)
[2020-02-13] MEDS ORDERED: Midazolam 5 mg/5 ml VIAL 1 mg/ml 5 ml VIAL (5 mg) ONE (09:00)
[2020-02-13] MEDS ORDERED: Rocuronium 50 mg VIAL 10 mg/ml 5 ml VIAL (50 mg) ONE ×2 (09:03→10:38)
[2020-02-13] MEDS ORDERED: DiMENhydriNATE IV 50 mg/ml 1 ml VIAL ONE (09:36)
[2020-02-13] MEDS ORDERED: Ondansetron 4 mg VIAL 2 MG/ML 2 ml VIAL ONE (09:36)
[2020-02-13] MEDS ORDERED: Glycopyrrolate IV 0.2 MG/ML 1 ML VIAL ONE (09:36)
[2020-02-13] MEDS ORDERED: Succinylcholine 200 mg VIAL 20 mg/ml 10 ml VIAL (200 mg) ONE (09:36)
[2020-02-13] MEDS ORDERED: Lidocaine 2% PF 5 ML VIAL ONE (09:36)
[2020-02-13] MEDS ORDERED: Dexamethasone IV 4 MG/ML VIAL 1 ml VIAL ONE (09:36)
[2020-02-13] MEDS ORDERED: Propofol 10 MG/ML 20 ML BTL ONE (09:36)
[2020-02-13] MEDS ORDERED: Magnesium Sulfate 2 GM IV (Premix) IVPB ONE (10:30)
[2020-02-13] MEDS ORDERED: Sugammadex 500 MG/5 ML 5 ml VIAL IV PUSH ONE (11:20)
[2020-02-13] MEDS ORDERED: HYDROmorphone 1 MG/1 ML SYRINGE ONE (11:24)
[2020-02-13] MEDS: Aspirin EC 81 mg TAB.EC (enteric coated) PO SCH (13:18)
[2020-02-14] MEDS ORDERED: NS 0.9% IV ONE (00:45)
[2020-02-14] MEDS: Heparin 5000 UNITS/ML 1 mL VIAL SUBCUT SCH ×3 (04:51→22:46)
[2020-02-14 05:55] LABS: ABS Lymphocytes 0.5 10^3/ul (1.0-4.8); ABS Monocytes 0.6 10^3/ul (0-0.8); Hematocrit 34 % (42-52); Hemoglobin 11.5 g/dL (14.0-18.0); Lymphocyte % 4.2 %; Mean Corpuscular HGB Conc 34 g/dL (31-36); Mean Corpuscular Hemoglobin 32 pg (27-31); Mean Corpuscular Volume 92 fL (80-94); Platelet Count 176 10^3/uL (150-450); Red Blood Count 3.66 10^6 /uL (4.18-5.48); Red Cell Distribution Width 13 % (10-15)
[2020-02-14 06:06] LABS: Albumin 2.8 g/dL (3.2-5.2); Albumin/Globulin Ratio 1.1 (1-3); Calcium 7.4 mg/dL (8.6-10.3); EGFR African American 103.5 (>60); EGFR Non-African American 85.6 (>60); Globulin 2.6 g/dL (2-4); Potassium 3.4 mmol/L (3.5-5.0); Total Bilirubin 1.9 mg/dL (0.2-1.0); Total Protein 5.4 g/dL (6.4-8.9)
[2020-02-14] MEDS: Aspirin EC 81 mg TAB.EC (enteric coated) PO SCH (07:16)
[2020-02-14] MEDS: ZOSYN 3.375 GM Q8H per EXTENDED INFUSION IV SCH ×4 (07:17→23:40)
[2020-02-14] MEDS ORDERED: Potassium Chlor 20 meq TAB.ER PO ONE (07:47)
[2020-02-14] MEDS ORDERED: Scopolamine PATCH Remove NOTE PATCH OFF SCH (14:00)
[2020-02-15] MEDS: Heparin 5000 UNITS/ML 1 mL VIAL SUBCUT SCH ×2 (06:08→12:40)
[2020-02-15 06:46] LABS: ABS Eosinophils 0.1 10^3/ul (0-0.6); ABS Lymphocytes 1.3 10^3/ul (1.0-4.8); ABS Monocytes 0.7 10^3/ul (0-0.8); ABS Neutrophils 5.1 10^3/ul (1.5-7.7); Eosinophil % 0.8 %; Hematocrit 33 % (42-52); Hemoglobin 11.4 g/dL (14.0-18.0); Lymphocyte % 18.3 %; Mean Corpuscular HGB Conc 35 g/dL (31-36); Mean Corpuscular Hemoglobin 32 pg (27-31); Mean Corpuscular Volume 92 fL (80-94); Mean Platelet Volume 9.5 fL (7.4-10.4); Platelet Count 199 10^3/uL (150-450); Red Blood Count 3.59 10^6 /uL (4.18-5.48); Red Cell Distribution Width 13 % (10-15); White Blood Count 7.2 10^3/uL (3.5-10.8)
[2020-02-15 07:08] LABS: Albumin 2.7 g/dL (3.2-5.2); Albumin/Globulin Ratio 1.1 (1-3); BUN/Creatinine Ratio 12.5 (8-20); Calcium 7.3 mg/dL (8.6-10.3); EGFR African American 120.1 (>60); EGFR Non-African American 99.3 (>60); Globulin 2.4 g/dL (2-4); Potassium 3.6 mmol/L (3.5-5.0); Total Bilirubin 1.7 mg/dL (0.2-1.0); Total Protein 5.1 g/dL (6.4-8.9)
[2020-02-15] MEDS: ZOSYN 3.375 GM Q8H per EXTENDED INFUSION IV SCH (07:42)
[2020-02-15] MEDS: Aspirin EC 81 mg TAB.EC (enteric coated) PO SCH (07:42)
[2020-02-15] MEDS: Ondansetron 4 mg VIAL 2 MG/ML 2 ml VIAL IV PRN (08:50)
[2020-02-15 11:22] VITALS: BP 113/55
== END 2020-02-15 14:14 | disposition home or self-care (01) | DRG 710 ==
LOC: ED 17:15 → MEDTELE 17:15 → OBSVTOIN 21:29
PROVIDERS: ADMIT Nurse Practitioner Family; ATTEND Internal Medicine